=== PATIENT | male | born 1960 | race African-American/Black ===

== ENCOUNTER 2016-09-18 20:28 | Emergency (ER) | payer MEDICAID ==
[2016-09-19 06:44] VITALS: BP 120/77
[2016-09-19] MEDS ORDERED: LIDOCAINE 5% (700 MG) TRANSDERMAL ADH..PATCH TP ONE (06:58)
--- NOTE | 2016-09-19 07:01 | ER Document Report ---
ED General - General Chief Complaint: Pain All Over Stated Complaint: BODY PAIN TRAVEL OUTSIDE OF THE [place] IN LAST 30 DAYS: No - HPI Patient complains to provider of: total body pain Notes: Upon evaluation patient is sleeping. According to nursing staff patient has been the lobby and was found to be sleeping and this is name being called multiple times. Patient states diffuse body pain. Patient states history of back pain states back pain ongoing chronic issue denies any fevers chills nausea vomiting. Otherwise patient able to sit up in bed patient was seen ambulating around the ER prior with no gait changes. - Related Data Allergies/Adverse Reactions: acetaminophen [From Tylenol] Adverse Reaction (Verified 09/18/16 21:47) Hives aspirin Adverse Reaction (Verified 09/18/16 21:47) Hives ibuprofen Adverse Reaction (Verified 09/18/16 21:47) Hives Past Medical History - Social History Smoking Status: Unknown if Ever Smoked Frequency of alcohol use: None Family History: Reviewed & Not Pertinent Patient has suicidal ideation: No Patient has homicidal ideation: No Renal/ Medical History: Denies: Hx Peritoneal Dialysis Review of Systems - Review of Systems Constitutional: No symptoms reported EENT: No symptoms reported Cardiovascular: No symptoms reported Respiratory: No symptoms reported Gastrointestinal: No symptoms reported Genitourinary: No symptoms reported Male Genitourinary: No symptoms reported Musculoskeletal: Muscle pain Skin: No symptoms reported Hematologic/Lymphatic: No symptoms reported Neurological/Psychological: No symptoms reported Physical Exam - Vital signs Vitals: Temp Pulse Resp BP Pulse Ox 98.0 F 76 17 158/88 H 98 09/18/16 21:49 09/18/16 21:49 09/18/16 21:49 09/18/16 21:49 09/18/16 21:49 Interpretation: Normal - General General appearance: Appears well, Alert - HEENT Head: Normocephalic, Atraumatic Eyes: Normal Pupils: PERRL - Respiratory Respiratory status: No respiratory distress Chest status: Nontender Breath sounds: Normal Chest palpation: Normal - Cardiovascular Rhythm: Regular Heart sounds: Normal auscultation Murmur: No - Abdominal Inspection: Normal Distension: No distension Bowel sounds: Normal Tenderness: Nontender Organomegaly: No organomegaly - Back Back: Normal, Nontender - Extremities General upper extremity: Normal inspection, Nontender, Normal color, Normal ROM , Normal temperature General lower extremity: Normal inspection, Nontender, Normal color, Normal ROM , Normal temperature, Normal weight bearing. No: Jimena's sign - Neurological Neuro grossly intact: Yes Cognition: Normal Orientation: AAOx4 Madhu Coma Scale Eye Opening: Spontaneous Madhu Coma Scale Verbal: Oriented [place] Coma Scale Motor: Obeys Commands Madhu Coma Scale Total: 15 Speech: Normal Motor strength normal: LUE, RUE, LLE, RLE Sensory: Normal Knee - Reflex grade: 2 = Normal - Psychological Associated symptoms: Normal affect, Normal mood - Skin Skin Temperature: Warm Skin Moisture: Dry Skin Color: Normal Course - Re-evaluation Re-evalutation: 09/19/16 13:47 More likely patient is malingering looking for a place to sleep. Patient has no critical etiology seen on examination. Patient was given Lidoderm patch for his pain and discharged home - Vital Signs Vital signs: Temp Pulse Resp BP Pulse Ox 98.1 F 66 16 120/77 96 09/19/16 06:42 09/19/16 06:42 09/19/16 06:42 09/19/16 06:42 09/19/16 06:42 Discharge - Discharge Clinical Impression: Total body pain Chronic back pain Qualifiers: Back pain location: low back pain Back pain laterality: unspecified Sciatica presence: unspecified whether sciatica present Qualified Code(s): M54.5 - Low back pain Condition: Good Disposition: HOME, SELF-CARE Instructions: Chronic Pain Control ([facility]), Chronic Back Pain ([facility]), Myalagia ( Muscle Pain) ([facility]) Additional Instructions: Follow-up with your primary care physician or the clinic provided. Referrals: [facility] [Provider Group] - Follow up as needed
== END 2016-09-19 07:07 | disposition home or self-care (01) ==
LOC: ER 20:28
DX: M54.5 Low back pain (principal); R52 Pain, unspecified
CPT/HCPCS: 99283; J3490